=== PATIENT | male | born 1995 | race Caucasian/White ===

== ENCOUNTER 2016-11-15 08:43 | Emergency (ER) | payer BC ==
--- NOTE | ~2016-11-15 | CT4 ---
[facility] A Service of [facility] RADIOLOGY TEXT RESULTS PATIENT: BRENDA ZULUAGA LOCATION: SED : [birth year] UNIT #: [id number] AGE: [address]: Dino Navarro MD SEX: M ORDER DR: [id number] [place] [id number] E MR#: [id number] #: [id number] NAME: BRENDA ZULUAGA. : 1995 SEX: M STUDY DATE/TIME: 11/15/2016 9:56 UNIT: SED ROOM: STUDY DESCRIPTION: CT Abd and Pelv Wo Cont Attending Physician: Dino Navarro M.D. Ordering Physician: Dino Navarro M.D. Primary Care Physician: Belén Boyer A.P.R.N. MEDICAL IMAGING REPORT This report is preliminary unless electronic signature is present. EXAM Abdomen and pelvis CT without contrast HISTORY History of vomiting since yesterday after taking Cipro. Abdominal pain. No history of stones. TECHNIQUE CT abdomen and pelvis performed without IV or oral contrast media using urinary tract stone protocol. Lack of intravenous and oral contrast media limits evaluation for pathology other than urinary tract calculus disease. This CT exam was performed with one or more of the following radiation dose reduction techniques: automatic exposure control, adjustment of mA and/or kV according to patient size, and iterative reconstruction. COMPARISON STUDIES There is no comparison. FINDINGS The lung bases are clear. CT ABDOMEN: The unenhanced liver, gallbladder, adrenal glands, pancreas, spleen are unremarkable. There is no evidence for intrarenal calculus. There is no hydronephrosis. There is a small amount of bilateral nonspecific perinephric stranding. There is some density in the appendix which could be some retained contrast media from prior oral contrast administration or it could be an appendicolith. The appendix is long and has a course posterior to the ascending colon with the tip near the liver. The appendix otherwise appears normal. No convincing evidence for appendicitis. Please correlate clinically. There are nonspecific small air-fluid levels within small bowel loops. No discrete transition point [facility] A Service of [facility] RADIOLOGY TEXT RESULTS PATIENT: BRENDA ZULUAGA [place] [facility] [place] [birth year] [place]IT #: [id number] AGE: [address]: Dino Navarro MD SEX: M ORDER DR: is seen. Small bowel loops are prominent but not particularly distended. Evaluation of the pelvis shows no bladder calculus. There is moderate stool in the colon. There is no free air. No drainable fluid collection is suspected. IMPRESSION 1. No evidence for urinary tract calculus disease. 2. The patient probably has several small appendicoliths within the distal appendix. The appendix is long and terminates posterior to the ascending colon, adjacent to the liver. Otherwise, there is nothing to suggest acute appendicitis. There are a few prominent small bowel loops in the lower abdomen but no definite transition point or evidence for definite bowel obstruction appreciated. Colon gas and stool to the level of the rectum. There is no free intraperitoneal air. 3. Study is limited by the lack of IV and oral contrast media for evaluation for pathology other than urinary tract calculus disease. Dictated by... Margarita David M.D. THIS IS AN ELECTRONICALLY VERIFIED REPORT Margarita David M.D. at 11/16/2016 3:53 PM RAYSA/juan francisco TD: 11/16/2016 15:09 JOB #: [id number] MEDICAL IMAGING REPORT Page 1 of 1
[~2016-11-15 08:43] MED LIST: ACETAMINOPHEN; ALLERGY MED; AMOXIL500 M1; FAMVIR500 M1 PO; LIDOCAINE HC20 MG/13 PO; MAGIC MOUTHWASH; NO MEDICATIONS; ZITHROMAX PO; ZOFRAN ODT4 MG SL
[2016-11-15] MEDS ORDERED: CIPRO (08:49)
[2016-11-15 09:26] LABS: BASOPHIL% 0.4 % (0-2.5); DIFF IND NO; EOSINOPHIL% 0.2 % (0.0-7.0); HEMATOCRIT 40.9 % (38.0-50.0); HEMOGLOBIN 14.1 gm/dL (13.0-16.0); LYMPHOCYTE# 0.8 X10e3 (1.0-3.5); LYMPHOCYTE% 12.5 % (17.0-45.0); MEAN CELL VOLUME 84.7 FL (83-96); MEAN CORPUSCULAR HEMOGLOBIN 29.3 PG (28-34); MEAN CORPUSCULAR HGB CONC 34.6 g/dL (30-36); MEAN PLATELET VOLUME 9.4 FL (6.5-11.5); MONOCYTE# 0.8 X10e3 (0-1.0); MONOCYTE% 12.7 % (3.0-12.0); NEUTROPHIL# 4.7 X10e3 (1.5-7.1); NEUTROPHIL% 74.2 % (40-75); PLATELET COUNT 187 X10e3 (140-420); RED BLOOD COUNT 4.83 X10e (3.90-5.60); RED CELL DISTRIBUTION WIDTH 12.5 % (11.0-15.5); WHITE BLOOD COUNT 6.4 X10e3 (4.0-10.5)
[2016-11-15 09:29] LABS: URINE SOURCE CLEAN CATCH
[2016-11-15 09:36] LABS: URINE APPEARANCE CLEAR; URINE BILIRUBIN NEG (NEG); URINE BLOOD TRACE-INTACT (NEG); URINE COLOR YELLOW; URINE GLUCOSE NEG (NORM); URINE KETONE NEG (NEG); URINE LEUKOCYTE ESTERASE NEG (NEG); URINE NITRATE NEG (NEG); URINE PROTEIN TRACE (NEG); URINE UROBILINOGEN 0.2 MG/DL (NORM)
[2016-11-15 09:37] LABS: MICRO INDICATED? YES
[2016-11-15 09:45] LABS: CULTURE INDICATED? NO; URINE BACTERIA NEG (NEG); URINE RBC 0-2 /[HPF] (0-2); URINE SQUAMOUS EPITHELIAL CELL FEW /[HPF]; URINE WBC 0-2 /[HPF] (0-5)
[2016-11-15 09:49] LABS: ALBUMIN SERUM 4.4 g/dL (3.5-5.0); ALKALINE PHOSPHATASE 65 U/L (32-92); ALT (SGPT) 14 U/L (10-40); AMYLASE 42 U/L (0-46); AST (SGOT) 19 U/L (10-42); BILIRUBIN,TOTAL 0.8 mg/dL (0.2-2.0); BLOOD UREA NITROGEN 24 mg/dL (9-23); CALCIUM SERUM 9.2 mg/dL (8.4-10.2); CARBON DIOXIDE 26 mmol/L (22-31); CHLORIDE 107 mmol/L (100-111); CREATININE SERUM 2.2 mg/dL (0.6-1.4); GLOM FILT RATE Estimated 40.7 mL/min (>60); GLUCOSE FASTING 103 mg/dL (70-110); LIPASE 32 U/L (22-51); POTASSIUM 3.8 mmol/L (3.5-5.1); PROTEIN TOTAL SERUM 6.5 g/dL (6.0-8.3); SODIUM 141 mmol/L (135-145)
[2016-11-15 09:51] LABS: AMPHETAMINE NEG (NEG); BARBITURATES NEG (NEG); BENZODIAZEPINES NEG (NEG); COCAINE NEG (NEG); MARIJUANA NEG (NEG); OPIATES NEG (NEG); TRICYCLIC ANTIDEPRESSANTS NEG (NEG); U METHADONE NEG (NEG)
[2016-11-15 09:58] LABS: BILIRUBIN, DIRECT <0.1 mg/dL (0.0-0.2); BILIRUBIN,INDIRECT 0.7 mg/dL (0.0-0.9)
[2016-11-15 13:10] LABS: BUN/CREATININE RATIO 9.54; CALCIUM SERUM 8.3 mg/dL (8.4-10.2); CREATININE SERUM 2.2 mg/dL (0.6-1.4); GLOM FILT RATE Estimated 40.7 mL/min (>60); POTASSIUM 4.1 mmol/L (3.5-5.1)
== END 2016-11-15 15:43 ==
LOC: SED 08:43
PROVIDERS: Emergency Medicine
DX: N17.9 Acute kidney failure, unspecified (principal); Z88.1 Allergy status to other antibiotic agents
CPT/HCPCS: 36415; 74176; 80048; 80076; 80307; 81003; 82150; 83690; 85025; 96361; 96374; 96375; 96376; 99285; C9113; J2270; J2405